=== PATIENT | male | born 1980 ===

== ENCOUNTER 2018-08-19 17:18 | Observation (INO) | payer MEDICAID, OTHER ==
[2018-08-19] MEDS ORDERED: Sodium Chloride 0.9% 1,000 ML IV STA (18:38)
[2018-08-19] MEDS ORDERED: Morphine 4 MG/ML VIAL IVP STA ×2 (18:38→20:34)
[2018-08-19] MEDS ORDERED: Morphine 4 MG/ML VIAL ONE ×2 (18:54→20:35)
[2018-08-19 19:03] LABS: BASO # 0.1 K/uL (0.0-0.2); BASO % 0.8 % (0.0-2.0); EOS # 0.2 K/uL (0.0-0.7); EOS % 2.1 % (0.0-4.0); HEMOGLOBIN 13.9 g/dL (12.0-18.0); LYMPH # 2.3 K/uL (1.0-4.3); LYMPH % 28.9 % (20.0-40.0); MEAN CELL VOLUME 90.3 fl (80.0-94.0); MEAN CORPUSCULAR HEMOGLOBIN 29.5 pg (27.0-31.0); MEAN CORPUSCULAR HGB CONC 32.7 g/dL (33.0-37.0); MEAN PLATELET VOLUME 10.6 fl (7.2-11.7); MONO # 0.6 K/uL (0.0-0.8); MONO % 7.7 % (0.0-10.0); NEUT # 4.9 K/uL (1.8-7.0); NEUT % 60.5 % (50.0-75.0); NRBC % 0.1 % (0.0-0.0); RBC 4.71 Mil/uL (4.40-5.90); RED CELL DISTRIBUTION WIDTH 13.5 % (11.5-14.5)
[2018-08-19 19:08] LABS: ALB/GLOB RATIO 1.4 (1.0-2.1); ALBUMIN 4.5 g/dL (3.5-5.0); ALT/SGPT 39 U/L (21-72); AST/SGOT 23 U/L (17-59); BLOOD UREA NITROGEN 22 mg/dl (9-20); CALCIUM 9.3 mg/dL (8.4-10.2); GFR NON-AFRICAN AMERICAN > 60
[2018-08-19 19:10] LABS: PROTHROMBIN TIME 11.3 Seconds (9.8-13.1)
[2018-08-19 19:12] LABS: PARTIAL THROMBOPLASTIN TIME 32.6 Seconds (25.6-37.1)
--- NOTE | 2018-08-19 19:13 | ED PDOC ---
HPI: Abdomen Time Seen by Provider: 08/19/18 18:20 Chief Complaint (Nursing): Abdominal Pain Chief Complaint (Provider): Abdominal Pain History Per: Patient History/Exam Limitations: no limitations Onset/Duration Of Symptoms: Days (x 3) Current Symptoms Are (Timing): Still Present Location Of Pain/Discomfort: RLQ, LLQ Quality Of Discomfort: "Pain" Associated Symptoms: Loss Of Appetite. denies: Nausea, Vomiting, Diarrhea, Constipation Exacerbating Factors: Movement Alleviating Factors: None Additional Complaint(s): 37 year old male with no significant medical history presents to the ED with bilateral lower abdominal pain for three days. Patient reports gradual onset of pain with progressive worsening of symptoms since. Today, pain became severe and is now worse with walking and any use of his abdominal muscles. Pain is localized in his bilateral lower quadrants and is associated with episodes of feeling hot and flushed as well as a decreased appetite. During said episodes, he reports a red rash to his chest and face. He also states that, for three days, he has had a bump of his left foot. Patient took NyQuil PM last night with no relief. Denies urinary symptoms, black or bloody stools, recent travel, and known sick contacts. PMD: none provided Past Medical History Reviewed: Historical Data, Nursing Documentation, Vital Signs Vital Signs: Last Vital Signs Temp 98.4 F 08/19/18 17:47 Pulse 76 08/19/18 17:47 Resp 17 08/19/18 17:47 BP 144/91 H 08/19/18 17:47 Pulse Ox 100 08/19/18 17:47 - Medical History PMH: No Chronic Diseases - Surgical History Surgical History: No Surg Hx - Family History Family History: States: Unknown Family Hx - Social History Current smoker - smoking cessation education provided: No Alcohol: None Drugs: Denies - Home Medications Home Medications: Ambulatory Orders Medication Instructions Recorded Ibuprofen/Diphenhydramine Cit 2 cap PO PRN PRN 08/19/18 [Advil Pm Caplet] - Allergies Allergies/Adverse Reactions: Allergies Allergy/AdvReac Type Severity Reaction Status Date / Time Penicillins Allergy RASH Verified 08/19/18 17:50 Review of Systems ROS Statement: Except As Marked, All Systems Reviewed And Found Negative Constitutional: Positive for: Other (decreased appetite) Gastrointestinal: Positive for: Abdominal Pain (bilateral lower quadrants). Negative for: Nausea, Vomiting, Diarrhea, Constipation, Melena, Hematochezia Genitourinary Male: Negative for: Dysuria, Frequency, Incontinence, Hematuria Physical Exam - Reviewed Nursing Documentation Reviewed: Yes Vital Signs Reviewed: Yes - Physical Exam Appears: Positive for: In Acute Distress (acute painful ) Head Exam: Positive for: ATRAUMATIC, NORMAL INSPECTION, NORMOCEPHALIC Skin: Positive for: Normal Color, Warm, Dry. Negative for: Rash Eye Exam: Positive for: EOMI, Normal appearance, PERRL Neck: Positive for: Normal, Painless ROM, Supple Cardiovascular/Chest: Positive for: Regular Rate, Rhythm. Negative for: Murmur Respiratory: Positive for: Normal Breath Sounds. Negative for: Wheezing, Respiratory Distress Gastrointestinal/Abdominal: Positive for: Soft, Tenderness (tenderness to palpation at bilateral lower quadrants and suprapubic area; left side worse than right side). Negative for: Guarding, Rebound Back: Positive for: Normal Inspection. Negative for: L CVA Tenderness, R CVA Tenderness Extremity: Positive for: Normal ROM (x 4). Negative for: Deformity, Swelling Neurological/Psych: Positive for: Awake, Alert, Normal Tone. Negative for: Motor/Sensory Deficits - Laboratory Results Result Diagrams: 08/20/18 06:00 08/20/18 06:00 - ECG O2 Sat by Pulse Oximetry: 100 (RA) Pulse Ox Interpretation: Normal Medical Decision Making Medical Decision Makin:37 Impression: lower abdominal pain Differential diagnoses include but are not limited to: diverticulitis, colitis, cystitis and appendicitis Initial Plan: --CT Abd & pelvis --CMP --CBC --lactic acid --urine dip --PTT --PT --Chlamydia --Dextrose 5%-0.9% NS 500 ml IV --Morphine 4 mg IV --NS IV 1,000 mls --Blood cx --urine cx --UA Name: LUZ MARIA BARNEY Exam Date: Aug 19, 2018 7:27:04 PM EDT Modality Type: CT Description: CT - ABDOMEN AND PELVIS WITH CORONAL AND SAGITTAL MPRS Gender: M Laterality: Not applicable : 84 Referring Physician: Nae Llanes EXAM: CT Abdomen and Pelvis with IV contrast CLINICAL HISTORY: Llq pain TECHNIQUE: Axial computed tomography images of the abdomen and pelvis with intravenous contrast. 546.09 mGy-cm CONTRAST: With; [id number] 95ML COMPARISON: None provided. FINDINGS: LUNG BASES: The lung bases appear clear. No pleural effusions are seen. LIVER: Unremarkable. GALLBLADDER AND BILE DUCTS: The gallbladder appears within normal limits. No radioopaque gallstones are seen. No biliary ductal dilatation is evident. PANCREAS: Unremarkable. SPLEEN: Unremarkable. ADRENAL GLANDS: Unremarkable. KIDNEYS, URETERS, AND BLADDER: The kidneys appear within normal limits. There is no hydronephrosis or hydroureter. No urinary calculi are seen. The urinary bladder appeared normal in size and configuration. STOMACH AND BOWEL: Unremarkable appearance of the stomach. No evidence of bowel obstruction. There is mild mucosal wall thickening of the small intestinal tract with fluid in the lumen suggesting diffuse enteritis. Additionally, there is mucosal wall thickening and mucosal irregularity noted within the descending and sigmoid colon suspicious for colitis. Infectious or inflammatory etiologies are thought most likely. APPENDIX: No evidence of acute appendicitis on CT examination. The appendix is retrocecal in location. PERITONEUM: No free fluid. No free air. LYMPH NODES: No lymphadenopathy is evident. REPRODUCTIVE: Unremarkable as visualized. VASCULATURE: No evidence of abdominal aortic aneurysm. BONES: No aggressive appearing osseous lesion. No acute osseous pathology evident. IMPRESSION: 1. Diffuse enteritis. 2. Descending and sigmoid colitis. 3. Consult with GI service is recommended. Electronically signed on Aug 19, 2018 8:40:01 PM EDT by: Kaushik Cruz M.D., YADIRA Certified By [employer] Fellowship Trained MRI and CT Specialist On reevaluation pt has persistent pain despite multiple doses of pain medication. [facility] Hospitalist for hospital management of enterocolitis and intractable abdominal pain. LEI pt findings and plan of care. Scribe Attestation: Documented by Skylar Alfaro, acting as a scribe for Nae Llanes MD. Provider Scribe Attestation: All medical record entries made by the Scribe were at my direction and personally dictated by me. I have reviewed the chart and agree that the record accurately reflects my personal performance of the history, physical exam, medical decision making, and the department course for this patient. I have also personally directed, reviewed, and agree with the discharge instructions and disposition. Disposition - Clinical Impression Clinical Impression: Enteritis, Colitis Counseled Patient/Family Regarding: Studies Performed, Diagnosis - Disposition Disposition Time: 22:00 Condition: FAIR - Pt Status Changed To: Hospital Disposition Of: Observation - POA Present On Arrival: None
[2018-08-19 19:26] LABS: SQUAMOUS EPITHIAL < 1 /hpf (0-5); URINE BACTERIA RARE (<OCC); URINE BILIRUBIN NEGATIVE (NEGATIVE); URINE BLOOD NEGATIVE (NEGATIVE); URINE CLARITY CLEAR (Clear); URINE COLOR YELLOW (YELLOW); URINE GLUCOSE (UA) NEG (NEGATIVE); URINE LEUKOCYTE ESTERASE NEG Leu/uL (Negative); URINE PROTEIN NEGATIVE (NEGATIVE)
[2018-08-19] MEDS ORDERED: Ciprofloxacin 400mg/200ml D5W 400 MG/200 ML BAG IV STA ×2 (21:31→21:38)
[2018-08-19] MEDS ORDERED: metroNIDAZOLE 500mg/100ml NS 100 ML IV STA ×2 (21:31→21:37)
[2018-08-19] MEDS ORDERED: metroNIDAZOLE 500mg/100ml NS 100 ML IVPB ONE (21:43)
--- NOTE | 2018-08-19 22:27 | CP.PCM.HP ---
History of Present Illness - History of Present Illness History of Present Illness: CC: B/L lower abdominal pain HPI: 37 year old Male with no signficant PMHx presents to [facility] ED with complaints of B/L lower abdominal pain associated nausea and vomiting x 3 days. Patient reports lower abdominal pain started on Saturday and progressively getting worse. Patient describes the pain as achy, constant, worse with body mo vement. Reports to have chills and sweats yesterday,and decreased appetite today. Patient took ibuprofen 200 mg yesterday with no relief. Patient denies diarrhea, constipation, bloody stool, dysuria or fever. Denies any recent travel or sick contact. Denies any hx similar symptoms in the past. Patient reports he had colonoscopy done in [facility] about 2 years ago due family hx colon CA and it was unremarkable. Patient is sexualy active with one female partner and does not use protection. Denies any hx STI. In ED, CT A/P shows diffuse enteritis, descending and sigmoid colitis. Patient is admitted for enteritis and intractible abdominal pain. ROS: All 12 systems reviewed and negative except as mentioned in HPI PMD: none PMHx: denies PSHx: denies Family hx: Mother: colon CA at age 55 Social hx: Denies smoking cigarettes, drinking Etoh or using drugs Allergies: PCN --rash (at age 20) Meds: none Present on Admission - Present on Admission Any Indicators Present on Admission: No History of DVT/PE: No Review of Systems - Review of Systems Review of Systems: All 12 systems reviewed and negative except as mentioned in HPI Past Patient History - Past Social History Alcohol: None Drugs: Denies - CARDIAC Hx Cardiac Disorders: No - PULMONARY Hx Respiratory Disorders: No - NEUROLOGICAL Hx Neurological Disorder: No - HEENT Hx HEENT Problems: No - RENAL Hx Chronic Kidney Disease: No - ENDOCRINE/METABOLIC Hx Endocrine Disorders: No - HEMATOLOGICAL/ONCOLOGICAL Hx Blood Disorders: No - INTEGUMENTARY Hx Dermatological Problems: No - MUSCULOSKELETAL/RHEUMATOLOGICAL Hx Musculoskeletal Disorders: No - GASTROINTESTINAL Hx Gastrointestinal Disorders: No - GENITOURINARY/GYNECOLOGICAL Hx Genitourinary Disorders: No - PSYCHIATRIC Hx Psychophysiologic Disorder: No Hx Substance Use: No - SURGICAL HISTORY Hx Surgeries: No - ANESTHESIA Hx Anesthesia: Yes Hx Anesthesia Reactions: No Hx Malignant Hyperthermia: No Meds Allergies/Adverse Reactions: Allergies Allergy/AdvReac Type Severity Reaction Status Date / Time Penicillins Allergy RASH Verified 08/19/18 17:50 Physical Exam - Constitutional Appears: Non-toxic, No Acute Distress - Head Exam Head Exam: NORMAL INSPECTION - Eye Exam Eye Exam: Normal appearance - ENT Exam ENT Exam: Mucous Membranes Moist - Neck Exam Neck exam: Positive for: Normal Inspection - Respiratory Exam Respiratory Exam: Clear to Auscultation Bilateral, NORMAL BREATHING PATTERN. ab sent: Rhonchi, Wheezes, Respiratory Distress - Cardiovascular Exam Cardiovascular Exam: REGULAR RHYTHM, +S1, +S2 - GI/Abdominal Exam GI & Abdominal Exam: Normal Bowel Sounds, Soft Additional comments: Moderate B/L lower abdominal tenderness (L>R). No rebound, guarding or rigidity. - Extremities Exam Extremities exam: Positive for: normal inspection. Negative for: calf tenderness - Neurological Exam Neurological exam: Alert, Oriented x3 - Psychiatric Exam Psychiatric exam: Normal Affect, Normal Mood - Skin Skin Exam: Normal Color Additional comments: 2 cm x 2 cm mobile mild tender lesion on left lateral foot at 5th metacarpal bone. NO signs of infection. Results - Vital Signs Recent Vital Signs: Last Vital Signs Temp 98.3 F 08/19/18 21:50 Pulse 69 08/19/18 21:50 Resp 18 08/19/18 21:50 BP 123/72 08/19/18 21:50 Pulse Ox 98 08/19/18 21:50 - Labs Result Diagrams: 08/19/18 18:54 08/19/18 18:54 Labs: Laboratory Results - last 24 hr 08/19/18 08/19/18 08/19/18 18:54 18:54 18:54 WBC 8.0 RBC 4.71 Hgb 13.9 Hct 42.5 MCV 90.3 MCH 29.5 MCHC 32.7 L RDW 13.5 Plt Count 179 MPV 10.6 Neut % (Auto) 60.5 Lymph % (Auto) 28.9 [place] % (Auto) 7.7 Eos % (Auto) 2.1 Baso % (Auto) 0.8 Neut # (Auto) 4.9 Lymph # (Auto) 2.3 [place] # (Auto) 0.6 Eos # (Auto) 0.2 Baso # (Auto) 0.1 PT 11.3 INR 1.0 APTT 32.6 Sodium 141 Potassium 3.8 Chloride 103 Carbon Dioxide 28 Anion Gap 14 BUN 22 H Creatinine 1.2 Est GFR ( Amer) > 60 Est GFR (Non-Af Amer) > 60 Random Glucose 105 Lactic Acid Calcium 9.3 Total Bilirubin 0.6 AST 23 ALT 39 Alkaline Phosphatase 47 Total Protein 7.7 Albumin 4.5 Globulin 3.3 Albumin/Globulin Ratio 1.4 Urine Color Urine Clarity Urine pH Ur Specific [place] Urine Protein Urine Glucose (UA) Urine Ketones Urine Blood Urine Nitrate Urine Bilirubin Urine Urobilinogen Ur Leukocyte Esterase Urine RBC (Auto) Urine Microscopic WBC Ur Squamous Epith Cells Urine Bacteria 08/19/18 08/19/18 19:13 19:13 WBC RBC Hgb Hct MCV MCH MCHC RDW Plt Count MPV Neut % (Auto) Lymph % (Auto) [place] % (Auto) Eos % (Auto) Baso % (Auto) Neut # (Auto) Lymph # (Auto) [place] # (Auto) Eos # (Auto) Baso # (Auto) PT INR APTT Sodium Potassium Chloride Carbon Dioxide Anion Gap BUN Creatinine Est GFR ( Amer) Est GFR (Non-Af Amer) Random Glucose Lactic Acid 2.1 Calcium Total Bilirubin AST ALT Alkaline Phosphatase Total Protein Albumin Globulin Albumin/Globulin Ratio Urine Color Yellow Urine Clarity Clear Urine pH 7.0 Ur Specific [place] 1.023 Urine Protein Negative Urine Glucose (UA) Neg Urine Ketones Negative Urine Blood Negative Urine Nitrate Negative Urine Bilirubin Negative Urine Urobilinogen 2.0 Ur Leukocyte Esterase Neg Urine RBC (Auto) < 1 Urine Microscopic WBC < 1 Ur Squamous Epith Cells < 1 Urine Bacteria Rare Assessment & Plan - Assessment and Plan (Free Text) Assessment: 37 year old Male with no signficant PMHx presents to [facility] ED with complaints of B/L lower abdominal pain associated nausea and vomiting x 3 days. Patient reports lower abdominal pain started on Saturday and progressively getting worse. Patient describes the pain as achy, constant, worse with body movement. Patient reports he had colonoscopy done in [facility] about 2 years ago due family hx colon CA and it was unremarkable. In ED, CT A/P shows diffuse enteritis, descending and sigmoid colitis. Patient is admitted for enteritis and intractible abdominal pain. Plan: Diffuse Enteritis with descending and sigmoid colitis -Afebrile with stable vitals -wbc 8.0; LA 2.1 -CT A/P: IMPRESSION: 1. Diffuse enteritis. 2. Descending and sigmoid colitis. 3. Consult with GI service is recommended. -S/P cipro and flagyl in ED -s/p 1 L NS in ed -c/w Cipro and Flagyl -c/w D5 1/2NS for now, will order LR @100 cc/hr after completion of 1 L D5 1/2NS -Clear liquid diet -anti-emetics -Pain management -f/u AM labs Dehydration: BUN/Cr 22/1.2 -s/p 1 L NS in ED -c/w D5 1/2 NS -Clear liquid diet Ganglion cyst of left foot -on pain meds -f/u outpatient DVT prophylaxis -SCDs now Patient seen, examined and plan discussed with Dr. Adam Maloney, [id number]
[2018-08-19] MEDS ORDERED: Ciprofloxacin 400mg/200ml D5W 400 MG/200 ML BAG IVPB ONE (22:50)
[2018-08-20] MEDS ORDERED: Lactated Ringer's 1,000 ML IV SCH (03:45)
[2018-08-20] MEDS: metroNIDAZOLE 500mg/100ml NS 100 ML IVPB SCH ×2 (05:52→13:52)
[2018-08-20] MEDS ORDERED: Influenza Vaccine 60 mcg/0.5 mL SYR (4YR UP) IM ONE (06:00)
[2018-08-20] MEDS ORDERED: Influenza Vaccine (5 YR UP)/PF 60 MCG/0.5 ML SYR IM ONE (06:00)
[2018-08-20] MEDS ORDERED: Pneumococcal 23-Valent Vaccine IM ONE (06:00)
[2018-08-20 06:48] LABS: BASO # 0.1 K/uL (0.0-0.2); BASO % 0.9 % (0.0-2.0); EOS # 0.2 K/uL (0.0-0.7); EOS % 2.7 % (0.0-4.0); HEMOGLOBIN 13.4 g/dL (12.0-18.0); LYMPH # 2.4 K/uL (1.0-4.3); LYMPH % 33.5 % (20.0-40.0); MEAN CELL VOLUME 89.3 fl (80.0-94.0); MEAN CORPUSCULAR HEMOGLOBIN 29.5 pg (27.0-31.0); MEAN PLATELET VOLUME 10.3 fl (7.2-11.7); MONO # 0.6 K/uL (0.0-0.8); MONO % 8.7 % (0.0-10.0); NEUT # 3.8 K/uL (1.8-7.0); NEUT % 54.2 % (50.0-75.0); NRBC % 0.1 % (0.0-0.0); RBC 4.56 Mil/uL (4.40-5.90); RED CELL DISTRIBUTION WIDTH 13.3 % (11.5-14.5)
[2018-08-20 07:12] LABS: BLOOD UREA NITROGEN 17 mg/dl (9-20); CALCIUM 8.7 mg/dL (8.4-10.2); GFR NON-AFRICAN AMERICAN > 60
[2018-08-20] MEDS ORDERED: Ciprofloxacin 400mg/200ml D5W 400 MG/200 ML BAG IVPB SCH (09:00)
[2018-08-20] MEDS ORDERED: Pantoprazole 40 mg EC Tab PO SCH (09:00)
--- NOTE | 2018-08-20 12:02 | CT ---
Date of service: 08/19/2018 PROCEDURE: CT Abdomen and Pelvis with contrast HISTORY: LLQ pain COMPARISON: None available. TECHNIQUE: CT scan of the abdomen and pelvis was performed after administration of intravenous contrast. Oral contrast was not administered. Coronal and sagittal reformatted images were obtained. Contrast dose: Radiation dose: Total exam DLP = 546.09 mGy-cm. This CT exam was performed using one or more of the following dose reduction techniques: Automated exposure control, adjustment of the mA and/or kV according to patient size, and/or use of iterative reconstruction technique. FINDINGS: LOWER THORAX: The visualized lungs are clear. LIVER: Mild hepatomegaly and fatty liver. Normal homogeneous enhancement. No gross lesion or ductal dilatation. GALLBLADDER AND BILE DUCTS: Well distended. No calcified gallstones, wall thickening or pericholecystic fluid. PANCREAS: Normal in size with homogeneous enhancement. No gross lesion or ductal dilatation. SPLEEN: Normal in size and appearance. ADRENALS: No discrete nodule. KIDNEYS AND URETERS: Normal in size with homogeneous enhancement. No hydronephrosis. No solid mass. VASCULATURE: No aortic aneurysm. There are no aortic atherosclerotic calcifications or mural plaque present. BOWEL: Evaluation of the bowel is limited in the absence of oral contrast. The small bowel loops are normal in caliber. There is moderate amount of stool in the ascending colon. There is diffuse fatty infiltration in the left colonic wall which is essentially decompressed. There is mild gaseous distension of the proximal sigmoid colon and moderate amount of stool in the distal sigmoid colon and rectum. No bowel dilatation or obstruction. APPENDIX: Normal appendix. PERITONEUM: No free fluid. No free air. LYMPH NODES: No enlarged lymph nodes. BLADDER: Well distended and normal in appearance. REPRODUCTIVE: The prostate gland is normal in size. BONES: No acute fracture. Within normal limits for the patient's age. OTHER FINDINGS: None. IMPRESSION: No acute abdominal or pelvic abnormality. Diffuse fatty infiltration in the left colonic wall may represent chronic colitis. Moderate amount of stool in the ascending colon, distal sigmoid colon and rectum most compatible with constipation. Mild gaseous distension of the proximal sigmoid colon. No evidence for bowel obstruction. A preliminary report was provided by [employer]. The final report is tagged to the PA review folder.
[2018-08-20 16:03] VITALS: BP 109/70; PULSE 64; RESP 18; TEMP 98.2; O2SAT 99
--- NOTE | 2018-08-20 16:05 | CP.PCM.DIS ---
<Vince CorleyMita - Last Filed: 08/20/18 17:30> Provider - Provider Date of Admission: 08/19/18 21:39 Attending physician: Bryon Medina MD Time Spent in preparation of Discharge (in minutes): 33 Diagnosis - Discharge Diagnosis (1) Colitis Status: Acute (2) Enteritis Status: Acute Hospital Course - Lab Results Lab Results: Most Recent Lab Values WBC 7.0 K/uL (4.8-10.8) 08/20/18 06:00 RBC 4.56 Mil/uL (4.40-5.90) 08/20/18 06:00 Hgb 13.4 g/dL (12.0-18.0) 08/20/18 06:00 Hct 40.8 % (35.0-51.0) 08/20/18 06:00 MCV 89.3 fl (80.0-94.0) 08/20/18 06:00 MCH 29.5 pg (27.0-31.0) 08/20/18 06:00 MCHC 33.0 g/dL (33.0-37.0) 08/20/18 06:00 RDW 13.3 % (11.5-14.5) 08/20/18 06:00 Plt Count 170 K/uL (130-400) 08/20/18 06:00 MPV 10.3 fl (7.2-11.7) 08/20/18 06:00 Neut % (Auto) 54.2 % (50.0-75.0) 08/20/18 06:00 Lymph % (Auto) 33.5 % (20.0-40.0) 08/20/18 06:00 [place] % (Auto) 8.7 % (0.0-10.0) 08/20/18 06:00 Eos % (Auto) 2.7 % (0.0-4.0) 08/20/18 06:00 Baso % (Auto) 0.9 % (0.0-2.0) 08/20/18 06:00 Neut # (Auto) 3.8 K/uL (1.8-7.0) 08/20/18 06:00 Lymph # (Auto) 2.4 K/uL (1.0-4.3) 08/20/18 06:00 Cat[place] # (Auto) 0.6 K/uL (0.0-0.8) 08/20/18 06:00 Eos # (Auto) 0.2 K/uL (0.0-0.7) 08/20/18 06:00 Baso # (Auto) 0.1 K/uL (0.0-0.2) 08/20/18 06:00 PT 11.3 Seconds (9.8-13.1) 08/19/18 18:54 INR 1.0 08/19/18 18:54 APTT 32.6 Seconds (25.6-37.1) 08/19/18 18:54 Sodium 140 mmol/l (132-148) 08/20/18 06:00 Potassium 3.6 MMOL/L (3.6-5.0) 08/20/18 06:00 Chloride 104 mmol/L (98-107) 08/20/18 06:00 Carbon Dioxide 31 mmol/L (22-30) H 08/20/18 06:00 Anion Gap 9 (10-20) L 08/20/18 06:00 BUN 17 mg/dl (9-20) 08/20/18 06:00 Creatinine 0.9 mg/dl (0.8-1.5) 08/20/18 06:00 Est GFR ( Amer) > 60 08/20/18 06:00 Est GFR (Non-Af Amer) > 60 08/20/18 06:00 Random Glucose 89 mg/dL (75-110) 08/20/18 06:00 Lactic Acid 2.1 mmol/L (0.7-2.1) 08/19/18 19:13 Calcium 8.7 mg/dL (8.4-10.2) 08/20/18 06:00 Total Bilirubin 0.6 mg/dl (0.2-1.3) 08/19/18 18:54 AST 23 U/L (17-59) 08/19/18 18:54 ALT 39 U/L (21-72) 08/19/18 18:54 Alkaline Phosphatase 47 U/L (38-126) 08/19/18 18:54 Total Protein 7.7 G/DL (6.3-8.2) 08/19/18 18:54 Albumin 4.5 g/dL (3.5-5.0) 08/19/18 18:54 Globulin 3.3 gm/dL (2.2-3.9) 08/19/18 18:54 Albumin/Globulin Ratio 1.4 (1.0-2.1) 08/19/18 18:54 Urine Color Yellow (YELLOW) 08/19/18 19:13 Urine Clarity Clear (Clear) 08/19/18 19:13 Urine pH 7.0 (5.0-8.0) 08/19/18 19:13 Ur Specific [place] 1.023 (1.003-1.030) 08/19/18 19:13 Urine Protein Negative mg/dL (NEGATIVE) 08/19/18 19:13 Urine Glucose (UA) Neg mg/dL (NEGATIVE) 08/19/18 19:13 Urine Ketones Negative mg/dL (NEGATIVE) 08/19/18 19:13 Urine Blood Negative (NEGATIVE) 08/19/18 19:13 Urine Nitrate Negative (NEGATIVE) 08/19/18 19:13 Urine Bilirubin Negative (NEGATIVE) 08/19/18 19:13 Urine Urobilinogen 2.0 mg/dL (0.2-1.0) 08/19/18 19:13 Ur Leukocyte Esterase Neg Francisco J/uL (Negative) 08/19/18 19:13 Urine RBC (Auto) < 1 /hpf (0-3) 08/19/18 19:13 Urine Microscopic WBC < 1 /hpf (0-5) 08/19/18 19:13 Ur Squamous Epith Cells < 1 /hpf (0-5) 08/19/18 19:13 Urine Bacteria Rare (<OCC) 08/19/18 19:13 HIV-1 Ab Rapid Screen Non reactive (NON REAC) 08/19/18 22:15 - Hospital Course Hospital Course: 37 year old Male with no significant PMH who presented to [facility] ED c/o bilateral lower abdominal pain associated with nausea and vomiting. Patient reports 5 episodes of vomiting before admission. Patient endorsed his abdominal pain started on Saturday and progressively worsened prompting him to come to the ED. On admission patient described achy bilateral RLQ, hypogastric and LLQ, today patient is seen and he reports some improvement of the pain and is localized to the LLQ. Patient denies h/o constipation, he endorses a pattern of 2 BM daily, but this last two days he has had 1 BM. Today denies constipation, diarrhea or blood in the stool, nausea or vomiting, fever, dysuria or back pain . Patient today tolerated liquid diet at breakfast and soft diet with lunch with no c/o nausea or vomiting. Patient during his stay has remained afebrile, WBC 7 within normal range, HIV screen negative and rest of labs noted unremarkable. During his hospital course patient was treated for enteritis and abdominal pain with IVF, IV antibiotics Flagyl and Cipro IV, pain medication and stool softener. CT scan of abdm and pelvis done reports impression:-- No acute abdominal or pelvic abnormality. Diffuse fatty infiltration in left colonic wall may represent chronic colitis. Moderate amount of stool in the ascending colon and rectum most compatible with constipation. no bowel obstruction.-- Patient endorses he had a colonoscopy done in his country [facility] 2 years ago due to his family h/o colon CA, as per pt it was unremarkable. Patient's mother of colon CA at 55. Patient today is stable for DC home with continued outpatient treatment with oral antibiotics and medical follow up. Importance of follow up and plan discussed with patient and patient verbalized understanding. Importance of follow up with GI specialist was also stressed to patient, given his family hist ory of colon CA in his mother. ED precautions clearly given to patient. Patient's question were answered, he verbalizes understanding and agrees with plan. Outpatient Rx given: see OP Rx section. Discharge Exam - Head Exam Head Exam: ATRAUMATIC, NORMAL INSPECTION, NORMOCEPHALIC - Eye Exam Eye Exam: EOMI - ENT Exam ENT Exam: Mucous Membranes Moist - Respiratory Exam Respiratory Exam: Clear to PA & Lateral - Cardiovascular Exam Cardiovascular Exam: REGULAR RHYTHM, +S1, +S2 - GI/Abdominal Exam GI & Abdominal Exam: Normal Bowel Sounds, Soft, Tenderness (tenderness to palpation of LLQ). absent: Distended, Guarding - Neurological Exam Neurological exam: Alert, Oriented x3 - Psychiatric Exam Psychiatric exam: Normal Affect - Skin Skin Exam: Normal Color, Warm Discharge Plan - Discharge Medications Prescriptions: Ciprofloxacin [Cipro] 500 mg PO Q12H 7 Days #14 tab Metronidazole [Flagyl] 500 mg PO Q8H 7 Days #21 tablet - Follow Up Plan Condition: FAIR Disposition: HOME/ ROUTINE Patient education suggested?: Yes Instructions: Colitis (DC) Additional Instructions: hacer nayla con corona doctor primario dentro de 1 semana Please follow up at [facility] as instructed ED precautions given: Return to the ED if you have worsening of your abdominal pain, recurrence of nausea, vomiting, or you have fever, diarrhea, or any other new symptom or concern presents. Referrals: [facility] [Outside] Mita Nunez MD [Resident] - <Liza Morgan - Last Filed: 08/20/18 18:15> Provider - Provider Date of Admission: 08/19/18 21:39 Attending physician: Bryon Medina MD Hospital Course - Lab Results Lab Results: Most Recent Lab Values WBC 7.0 K/uL (4.8-10.8) 08/20/18 06:00 RBC 4.56 Mil/uL (4.40-5.90) 08/20/18 06:00 Hgb 13.4 g/dL (12.0-18.0) 08/20/18 06:00 Hct 40.8 % (35.0-51.0) 08/20/18 06:00 MCV 89.3 fl (80.0-94.0) 08/20/18 06:00 MCH 29.5 pg (27.0-31.0) 08/20/18 06:00 MCHC 33.0 g/dL (33.0-37.0) 08/20/18 06:00 RDW 13.3 % (11.5-14.5) 08/20/18 06:00 Plt Count 170 K/uL (130-400) 08/20/18 06:00 MPV 10.3 fl (7.2-11.7) 08/20/18 06:00 Neut % (Auto) 54.2 % (50.0-75.0) 08/20/18 06:00 Lymph % (Auto) 33.5 % (20.0-40.0) 08/20/18 06:00 Catron % (Auto) 8.7 % (0.0-10.0) 08/20/18 06:00 Eos % (Auto) 2.7 % (0.0-4.0) 08/20/18 06:00 Baso % (Auto) 0.9 % (0.0-2.0) 08/20/18 06:00 Neut # (Auto) 3.8 K/uL (1.8-7.0) 08/20/18 06:00 Lymph # (Auto) 2.4 K/uL (1.0-4.3) 08/20/18 06:00 [place] # (Auto) 0.6 K/uL (0.0-0.8) 08/20/18 06:00 Eos # (Auto) 0.2 K/uL (0.0-0.7) 08/20/18 06:00 Baso # (Auto) 0.1 K/uL (0.0-0.2) 08/20/18 06:00 PT 11.3 Seconds (9.8-13.1) 08/19/18 18:54 INR 1.0 08/19/18 18:54 APTT 32.6 Seconds (25.6-37.1) 08/19/18 18:54 Sodium 140 mmol/l (132-148) 08/20/18 06:00 Potassium 3.6 MMOL/L (3.6-5.0) 08/20/18 06:00 Chloride 104 mmol/L (98-107) 08/20/18 06:00 Carbon Dioxide 31 mmol/L (22-30) H 08/20/18 06:00 Anion Gap 9 (10-20) L 08/20/18 06:00 BUN 17 mg/dl (9-20) 08/20/18 06:00 Creatinine 0.9 mg/dl (0.8-1.5) 08/20/18 06:00 Est GFR ( Amer) > 60 08/20/18 06:00 Est GFR (Non-Af Amer) > 60 08/20/18 06:00 Random Glucose 89 mg/dL (75-110) 08/20/18 06:00 Lactic Acid 2.1 mmol/L (0.7-2.1) 08/19/18 19:13 Calcium 8.7 mg/dL (8.4-10.2) 08/20/18 06:00 Total Bilirubin 0.6 mg/dl (0.2-1.3) 08/19/18 18:54 AST 23 U/L (17-59) 08/19/18 18:54 ALT 39 U/L (21-72) 08/19/18 18:54 Alkaline Phosphatase 47 U/L (38-126) 08/19/18 18:54 Total Protein 7.7 G/DL (6.3-8.2) 08/19/18 18:54 Albumin 4.5 g/dL (3.5-5.0) 08/19/18 18:54 Globulin 3.3 gm/dL (2.2-3.9) 08/19/18 18:54 Albumin/Globulin Ratio 1.4 (1.0-2.1) 08/19/18 18:54 Urine Color Yellow (YELLOW) 08/19/18 19:13 Urine Clarity Clear (Clear) 08/19/18 19:13 Urine pH 7.0 (5.0-8.0) 08/19/18 19:13 Ur Specific [place] 1.023 (1.003-1.030) 08/19/18 19:13 Urine Protein Negative mg/dL (NEGATIVE) 08/19/18 19:13 Urine Glucose (UA) Neg mg/dL (NEGATIVE) 08/19/18 19:13 Urine Ketones Negative mg/dL (NEGATIVE) 08/19/18 19:13 Urine Blood Negative (NEGATIVE) 08/19/18 19:13 Urine Nitrate Negative (NEGATIVE) 08/19/18 19:13 Urine Bilirubin Negative (NEGATIVE) 08/19/18 19:13 Urine Urobilinogen 2.0 mg/dL (0.2-1.0) 08/19/18 19:13 Ur Leukocyte Esterase Neg Francisco J/uL (Negative) 08/19/18 19:13 Urine RBC (Auto) < 1 /hpf (0-3) 08/19/18 19:13 Urine Microscopic WBC < 1 /hpf (0-5) 08/19/18 19:13 Ur Squamous Epith Cells < 1 /hpf (0-5) 08/19/18 19:13 Urine Bacteria Rare (<OCC) 08/19/18 19:13 HIV-1 Ab Rapid Screen Non reactive (NON REAC) 08/19/18 22:15 Attending/Attestation - Attestation I have personally seen and examined this patient.: Yes I have fully participated in the care of the patient.: Yes I have reviewed all pertinent clinical information, including history, physical exam and plan: Yes Notes (Text): Acute Gastroenteritis/Colitis Abdominal Pain, resolved Nausea/Vomiting resolved no diarrhea ,had BM today - pt is afebrile, no leukocytosis -received IV Cipro and Flagyl - tolerating PO diet - Soft , [place]
== END 2018-08-20 17:21 | disposition home or self-care (01) ==
LOC: H.ER 17:18 → H.ERHOLD 21:39 → H.MEDSURG1 23:23
PROVIDERS: ADMIT Internal Medicine; ATTEND Internal Medicine
DX: K52.9 Noninfective gastroenteritis and colitis, unspecified (principal); E86.0 Dehydration; M67.472 Ganglion, left ankle and foot; Z88.0 Allergy status to penicillin; Z23 Encounter for immunization
CPT/HCPCS: 36415; 74177; 80048; 80053; 81003; 83605; 85025; 85610; 85730; 87040; 87086; 87390; 87491; 87591; 90674; 90732; 96360; 96361; 96374; 99284; G0008; G0009; G0378; J0744; J1885; J2270; J2405; J7030; J7042; J7120